=== PATIENT | female | born 2000 | race Hispanic/Latino ===

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

== ENCOUNTER 2024-08-10 13:50 | Emergency (ER) | payer BC, MEDICAID ==
[~2024-08-10] VITALS: Ht 165.1 cm; Wt 92.1 kg
--- NOTE | 2024-08-10 14:16 | EKG ---
[facility] Test Date: 2024-08-10 Test Time: 14:15:09 Pat Name: MARIA R SERNA Department: ED Room: Gender: F Housing Development Specialist: [id number] [phone] 2000 Requested By: FAITH CLEMENTE Order Number: [id number] Reading MD: Karel Almaraz Measurements Intervals [place] Rate: 106 P: 61 [place]: 150 QRS: 65 QRSD: 96 T: 24 QT: 347 QTc: 462 Interpretive Statements Sinus tachycardia No previous ECG available for comparison Electronically Signed On 08-11-2024 07:26:40 CDT by Karel Almaraz Please click the below link to view image of tracing.
[2024-08-10 14:50] LABS: BASOPHILS # (AUTO) 0.06 K/uL (0.00-0.20); BASOPHILS % (AUTO) 0.7 % (0.0-5.0); EOSINOPHILS # (AUTO) 0.46 K/uL (0.00-0.70); EOSINOPHILS % (AUTO) 5.3 % (0.0-8.0); HEMATOCRIT 41.3 % (36-48); IMMATURE GRANULOCYTE ABSOLUTE 0.04 K/uL (0-1); LYMPHOCYTES # (AUTO) 2.9 K/uL (1.0-4.8); MEAN CORPUSCULAR HEMOGLOBIN 29.1 pg (27.0-33.0); MEAN CORPUSCULAR HGB CONC 34.6 g/dL (32.0-36.0); MEAN CORPUSCULAR VOLUME 84.1 fL (79-99); MONOCYTES # (AUTO) 0.7 K/uL (0.1-1.0); MONOCYTES % (AUTO) 7.8 % (3.0-13.0); NEUTROPHILS # (AUTO) 4.5 K/uL (1.8-7.7); NEUTROPHILS % (AUTO) 51.7 % (40.0-77.0); PLATELET COUNT (AUTO) 366 K/uL (130-400); RED BLOOD CELL COUNT(AUTO) 4.91 MIL/uL (4.00-5.50); RED CELL DISTRIBUTION WIDTH 12.6 % (11.0-15.5); WHITE BLOOD COUNT (AUTO) 8.6 K/uL (4.8-10.8)
[2024-08-10 14:58] LABS: CREATININE 0.6 mg/dL (0.5-1.0); POTASSIUM 3.2 mmol/L (3.5-5.1)
[2024-08-10 15:03] LABS: APPEARANCE,URINE CLOUDY (CLEAR); BILIRUBIN,URINE NEGATIVE (NEGATIVE); COLOR,URINE LIGHT-YELLOW (YELLOW); GLUCOSE, URINE (UA) NEGATIVE (NEGATIVE); KETONES,URINE NEGATIVE (NEGATIVE); LEUKOCYTE ESTERASE ,URINE 250 Leu/uL (NEGATIVE); NITRATE,URINE NEGATIVE (NEGATIVE); OCCULT BLOOD,URINE NEGATIVE (NEGATIVE); PH,URINE 7.5 (5.0-8.0); PROTEIN,URINE NEGATIVE (NEGATIVE); UROBILINOGEN,URINE 0.2 mg/dL (0.2-1.0)
[2024-08-10 15:06] LABS: HCG,QUALITATIVE URINE NEGATIVE (NEGATIVE)
[2024-08-10 15:11] LABS: AMPHET/METH SCREEN,URINE NEGATIVE (NEGATIVE); BACTERIA,URINE RARE /HPF (None Seen); BARBITURATE SCREEN, URINE NEGATIVE (NEGATIVE); BENZODIAZEPINES SCREEN,URINE NEGATIVE (NEGATIVE); CANNABINOID SCREEN,URINE NEGATIVE (NEGATIVE); COCAINE SCREEN,URINE NEGATIVE (NEGATIVE); OPIATE SCREEN,URINE NEGATIVE (NEGATIVE); PHENCYCLIDINE SCREEN,URINE NEGATIVE (NEGATIVE); SQUAMOUS EPITHELIAL CELL,UR MOD /HPF (0-2)
[2024-08-10] MEDS: PoTASSium BIcarbonate/CIT AC 25 MEQ TABLET.EFF PO ONE (15:56)
--- NOTE | 2024-08-10 16:23 | HMCIMG ---
CHEST 1VW HISTORY: Chest pain COMPARISON: None FINDINGS: A frontal projection of the chest was obtained. No acute pulmonary infiltrates is seen. The heart is normal in size. No evidence of aortic calcification is seen. IMPRESSION: 1. No acute pulmonary infiltrate is seen.
--- NOTE | 2024-08-10 17:01 | ERN ---
General Chief Complaint: Chest Pain Stated Complaint: CHEST PAIN Time Seen by MD: 13:50 Time Seen by Midlevel: 13:50 Source: patient History of Present Illness Initial Comments 24-year-old female who presents to the emergency department due to chest pain ongoing for two days. Patient reports she has a history of cardiomyopathy has a child. Denies any difficulty breathing, nausea, vomiting or further associated symptoms. States she is currently on antibiotics for urinary tract infection. Denies further significant past medical history. Allergies: Coded Allergies: No Known Drug Allergies (Unverified Allergy, Unknown, 08/10/24) Past Medical History Past Medical History: Other Medical History Other: CARDIOMYOPATHY Past Surgical History: None ROS Dictation Constitutional: Negative for fever,chills, and weight loss Eyes: Negative for injury, pain,redness, and discharge ENT: Negative for injury,pain or swelling Cardiovascular: Positive for chest pain Negative for palpitations, and edema Respiratory: Negative for shortness of breath, cough, and wheezing, Abdomen/GI: Negative for abdominal pain, nausea, vomiting, diarrhea, and constipation Back: Negative for injury and pain : Negative for painful urination, bleeding or discharge MS/Extremity: Negative for injury and deformity Skin: Negative for rash, and discoloration Neuro: Negative for headache, weakness, numbness, tingling, and seizure Psych: Negative for suicide ideation, homicidal ideation, and hallucinations Physical Exam Physical Exam Dictation General: awake, alert, no acute distress Head/Face: Normocephalic, atraumatic Eyes: PERRL, EOMI, normal conjunctiva ENT: oral cavity clear, oral mucosa moist Neck: Supple, normal range of motion Cardiovascular: RRR, normal S1/S2 Respiratory: CTAB, no respiratory distress, no rales or wheezes Chest: Pain reproducible with palpation of the left side Abdomen: Soft, non-tender, non-distended, no guarding or rebound. Skin: Warm, dry, normal turgor, no rash MS/Extremity: Pulses equal, no cyanosis, neurovascular intact, FROM Neuro: COAx4, GCS 15, strength 5/5, CN 2-12 intact, normal cerebellar exam, normal gait, Psych: Normal behavior, mood, and affect normal Results Laboratory and Microbiology Lab and Micro Result Laboratory Tests Test 08/10/24 14:42 08/10/24 14:48 White Blood Count 8.6 K/uL (4.8-10.8) Red Blood Count 4.91 MIL/uL (4.00-5.50) Hemoglobin 14.3 g/dL (12.0-16.0) Hematocrit 41.3 % (36-48) Mean Corpuscular Volume 84.1 fL (79-99) Mean Corpuscular Hemoglobin 29.1 pg (27.0-33.0) Mean Corpuscular Hemoglobin Concent 34.6 g/dL (32.0-36.0) Red Cell Distribution Width 12.6 % (11.0-15.5) Platelet Count 366 K/uL (130-400) Mean Platelet Volume 8.5 fL (7.5-10.5) Immature Granulocyte % (Auto) 0.5 % (0-1) Neutrophils (%) (Auto) 51.7 % (40.0-77.0) Lymphocytes (%) (Auto) 34.0 % (21.0-51.0) Monocytes (%) (Auto) 7.8 % (3.0-13.0) Eosinophils (%) (Auto) 5.3 % (0.0-8.0) Basophils (%) (Auto) 0.7 % (0.0-5.0) Neutrophils # (Auto) 4.5 K/uL (1.8-7.7) Lymphocytes # (Auto) 2.9 K/uL (1.0-4.8) Monocytes # (Auto) 0.7 K/uL (0.1-1.0) Eosinophils # (Auto) 0.46 K/uL (0.00-0.70) Basophils # (Auto) 0.06 K/uL (0.00-0.20) Absolute Immature Granulocyte (auto 0.04 K/uL (0-1) Nucleated Red Blood Cells 0.0 % (0.0-0.19) D-Dimer Quantitative (PE/DVT) 222 ng/mL (0-500) Sodium Level 134 mmol/L (136-145) L Potassium Level 3.2 mmol/L (3.5-5.1) L Chloride Level 100 mmol/L (101-111) L Carbon Dioxide Level 26 mmol/L (21-32) Blood Urea Nitrogen 9 mg/dL (7-18) Creatinine 0.6 mg/dL (0.5-1.0) Glomerular Filtration Rate Calc 128 mL/min (>90) Random Glucose 97 mg/dL (70-105) Total Calcium 8.8 mg/dL (8.5-10.1) Troponin I High Sensitivity 15 ng/L (4-50) B-Type Natriuretic Peptide 6 pg/mL (0-100) Urine Color LIGHT-YELLOW (YELLOW) Urine Appearance CLOUDY (CLEAR) H Urine pH 7.5 (5.0-8.0) Urine Specific Bow 1.007 (1.001-1.031) Urine Protein NEGATIVE mg/dL (NEGATIVE) Urine Glucose (UA) NEGATIVE mg/dL (NEGATIVE) Urine Ketones NEGATIVE mg/dL (NEGATIVE) Urine Occult Blood NEGATIVE (NEGATIVE) Urine Nitrate NEGATIVE (NEGATIVE) Urine Bilirubin NEGATIVE mg/dL (NEGATIVE) Urine Urobilinogen 0.2 mg/dL (0.2-1.0) Urine Leukocyte Esterase 250 Darcie/uL (NEGATIVE) H Urine RBC 2-5 /HPF (0-1) H Urine WBC 6-10 /HPF (0-1) H Urine Squamous Epithelial Cells MOD /HPF (0-2) Urine Bacteria RARE /HPF (None Seen) Urine HCG, Qualitative NEGATIVE (NEGATIVE) Urine Opiates Screen NEGATIVE (NEGATIVE) Urine Barbiturates Screen NEGATIVE (NEGATIVE) Urine Phencyclidine Screen NEGATIVE (NEGATIVE) Urine Amphetamines Screen NEGATIVE (NEGATIVE) Urine Benzodiazepines Screen NEGATIVE (NEGATIVE) Urine Cocaine Screen NEGATIVE (NEGATIVE) Urine Marijuana (THC) Screen NEGATIVE (NEGATIVE) Labs Reviewed?: Yes EKG/XRAY/US/CT/MRI X-RAY Comment REASON: Chest pain ORDERING PHYSICIAN: FAITH CLEMENTE PROCEDURE: CXR1VW - CHEST 1VW CHEST 1VW HISTORY: Chest pain COMPARISON: None FINDINGS: A frontal projection of the chest was obtained. No acute pulmonary infiltrates is seen. The heart is normal in size. No evidence of aortic calcification is seen. IMPRESSION: 1. No acute pulmonary infiltrate is seen. DICTATED BY: ROSENDO KEVIN MD DATE: 08/10/24 15[facility] MDM: Differential diagnosis: AK, ACS, musculoskeletal Rationale: 24-year-old female who presents to the emergency department due to chest pain ongoing for two days. Patient reports she has a history of cardiomyopathy has a child. Denies any difficulty breathing, nausea, vomiting or further associated symptoms. States she is currently on antibiotics for urinary tract infection. Denies further significant past medical history. Labs obtained are within normal limits, troponin normal, D-dimer obtained due to tachycardia WNL, hypokalemia with potassium of 3.2, UDS negative. UA indicates a urinary tract infection for which patient is currently on antibiotics. Ketorolac and K-Lyte administered in the ED. Chest x-ray indicates no acute abnormalities. Patient was educated on findings and diagnosis. Advised to follow up with PCP. Return to the emergency department if any worsening symptoms. Patient verbalized understanding. Patient stable for discharge. There are no social concerns with this patient. I independently interpreted the test that were performed, results were reviewed by me and considered findings on radiology if ordered. Medical management and examination interpretation discussions were had by me with other qualified healthcare professionals as indicated for the patient's care. ED Course Orders Procedure Category Date Status Time Cbc With Differential LAB 08/10/24 Complete 14:08 Basic Metabolic Panel LAB 08/10/24 Complete 14:08 Urinalysis LAB 08/10/24 Complete W/Microscopic 14:08 Troponin I High LAB 08/10/24 Complete Sensitivity 14:08 12 Lead Ekg Tracing- EKG 08/10/24 Resulted Technical 14:08 ,Urine Test LAB 08/10/24 Complete 14:08 Drug Screen Urine LAB 08/10/24 Complete 14:08 Culture Urine SAYDA 08/10/24 Complete 15:07 Potassium Bicarb/Cit PHA 08/10/24 Complete Ac 25meq (K-Lyte Ta 16:00 D-Dimer LAB 08/10/24 Complete 15:51 Chest 1vw RAD 08/10/24 Resulted 15:51 B-Type Natriuretic LAB 08/10/24 Complete Peptide 15:51 Ketorolac PHA 08/10/24 Complete Tromethamine 15mg/Ml 17:00 Current Medications Medications (Trade) Dose Ordered Sig/Torres Route PRN Reason Start Time Stop Time Status Last Admin Dose Admin Ketorolac Tromethamine (toRADol) 15 mg ONCE ONCE IM 08/10/24 17:00 08/10/24 17:01 DC 08/10/24 17:34 Potassium Bicarbonate (K-Lyte Tablet Eff 25 Meq Tablet.eff) 25 meq ONCE ONCE PO 08/10/24 16:00 08/10/24 16:01 DC 08/10/24 15:56 Vital Signs Date Time Temp Pulse Resp B/P (MAP) Pulse Ox O2 Delivery O2 Flow Rate FiO2 08/10/24 17:37 98.4 95 20 125/75 98 Room Air* 0 21 08/10/24 14:53 99.0 103 20 130/79 99 Room Air* 0 21 08/10/24 14:37 99.1 103 18 130/78 98 DX & DISP Disposition: Discharge Departure Impression: Primary Impression: Chest pain with low risk for cardiac etiology Additional Impression: Musculoskeletal chest pain Condition: Stable Additional Instructions: Discharge home. Rest. Follow up with primary care DrCrystal in 24 hours. Return to the ER for any acute changes or worsening symptoms. If any medications were prescribed take as directed. Okay to continue home medications unless otherwise discussed during your visit in the emergency room today. Patient was also advised to follow-up with primary care physician in 1 to 2 days for continued monitoring. Referrals: JOHNATHAN VASQUEZ MD (PCP) I performed the substantive portion of the visit. I have reviewed and personally made and approve the management plan that is documented in the notes by myself or the TONIA. I acknowledge full responsibility for the patient's management plan. FAITH CLEMENTE Aug 10, 2024 17:01
[2024-08-10] MEDS: ketOROlac 15MG/ML VIAL (15MG/ML) IM ONE (17:34)
[2024-08-10 17:37] VITALS: BP 125/75; PULSE 95; RESP 20; TEMP 98.5; O2SAT 98
== END 2024-08-10 17:40 | disposition home or self-care (01) ==
LOC: EDH 13:50
DX: R07.89 Other chest pain (principal)
CPT/HCPCS: 99284; 71045; 84484; 80048; 83880; 80305; 85025; 85378; 87086; 81001; 81025; 36415; 96372; 93005; J1885

== ENCOUNTER 2024-08-10 23:12 | Emergency (ER) | payer BC ==
[~2024-08-10] VITALS: Ht 167.6 cm; Wt 92.1 kg
--- NOTE | 2024-08-10 23:49 | ERN ---
CONSULTATION NOTE DATE OF ER CONSULTATION: DATE: 08/10/24 REASON FOR CONSULTATION: Ronni is an obese 24-year-old female who comes to the emergency room for complaints of shortness of breath. She says that she has difficulty filling her lungs with air without experiencing left upper chest tenderness. She was already seen earlier two day in his ED with similar complaints and the workup was negative. Troponins were negative chemistry panel was negative chest x-ray is negative urine was negative CBC was negative. Patient states she has no other symptoms at this time no cough no asthma, she did have asthma as a child, no GI upset. In other words review of systems is negative. ALLERGIES: Coded Allergies: No Known Drug Allergies (Unverified Allergy, Unknown, 08/10/24) VITAL SIGNS Vital Signs Date Time Temp Pulse Resp B/P (MAP) Pulse Ox O2 Delivery O2 Flow Rate FiO2 08/10/24 23:15 99.1 88 20 106/66 98 Room Air REVIEW OF SYSTEMS Negative PHYSICAL EXAM HEENT: N/C/AT, EOMI, PAULA Heart: Regular rate and rhythm no murmurs rubs or gallops Chest clear to auscultation on lung urban anterior and posterior. She does have chest wall tenderness in her left anterior chest I do not feel any lumps in her breast in the area and it seems to be localized to ribs 456 and it was very brief reproducible. Abdomen obese normal bowel sounds soft nontender nondistended Extremities moves all extremities normal peripheral perfusion. PROBLEM LIST Chest wall tenderness and shortness of breath on deep inspirations. No wheezing crackles or rales on auscultation PLAN I feel I have nothing to offer this young woman and her extensive workup from this morning is negative. It was clearly chest wall tenderness I expect from m usculoskeletal irritation. It can be treated with a warm compresses and Tylenol and ibuprofen. She should follow up with her primary care physician if it does not improve in the next week. I told the patient that I would look at her labs from earlier today and also her chest x-ray to see if there was something in nose resolved that could explain her symptoms. I did say that I may not be able to offer anything near. When I went back out to the lobby to discuss my impression, which is that she has a musculoskeletal pain that is causing her chest wall tenderness, she was gone. I will check back of couple of more times but at this point I think that she has left the hospital. DAVID BAL MD Aug 10, 2024 23:49
[2024-08-11 01:23] VITALS: BP 121/69; PULSE 68; RESP 18; TEMP 98.2; O2SAT 99
== END 2024-08-11 01:44 | disposition home or self-care (01) ==
LOC: EDH 23:12
DX: R06.02 Shortness of breath (principal); R07.89 Other chest pain; E66.9 Obesity, unspecified
CPT/HCPCS: 99281